=== PATIENT | female | born 1975 | race Two or more races ===

== ENCOUNTER 2025-06-09 15:26 | Emergency (ER) | payer OTHER, SELFPAY ==
[2025-06-09 15:33] VITALS: BP 149/80
[2025-06-09 17:34] LABS: Hematocrit 36.9 % (37.0-47.0); Hemoglobin 12.5 g/dL (12.0-16.0); Mean Corp Hgb Conc. 33.9 g/dL (33.0-37.0); Mean Corpuscular Volume 90.2 fL (81.0-99.0); Nucleated Red Blood Cells % 0 %; Platelet Count 187 10^3/uL (130-400); Red Cell Dist. Width 13.5 % (11.5-14.5)
[2025-06-09 17:58] LABS: ALT (SGPT) 31 U/L (0-35); AST (SGOT) 33 U/L (14-36); Albumin 4.1 g/dl (3.5-5.0); Alkaline Phosphatase 36 U/L (38-126); Blood Urea Nitrogen 13 mg/dl (7-17); Calcium 9.4 mg/dl (8.4-10.2); Carbon Dioxide 25 mmol/L (22-30); Chloride 101 mmol/L (98-107); Glucose 78 mg/dl (70-99); Potassium 4.2 mmol/L (3.5-5.1); Sodium 133 mmol/L (135-145); Total Protein 7.0 g/dl (6.3-8.2); eGFR > 60.00
--- NOTE | 2025-06-09 18:12 | ED.GENMED ---
History of Present Illness
General
Chief Complaint: Change in Mental Status
Source: patient
Exam Limitations: none
Time Seen by Provider: 06/09/25 16:52
Nursing documentation reviewed up to this point in time: agreed with
History of Present Illness
History of Present Illness:
49-year-old female with no significant past medical history presents with concerns of pressure in the head, described as a sensation that is not a headache and occurs intermittently. She has recently experienced two episodes of disorientation
lasting about two minutes each; the first occurred late 3 days ago and the second around noon today while preparing food in the kitchen. During these episodes, she felt confused and had to hold onto a counter to steady herself. Additionally, she
reports blurred vision upon waking in the morning, resolving within a couple of hours once up and around. There is no history of similar episodes. She does not have any chronic medical conditions and denies taking regular medications other than a
multivitamin. There are no known medication allergies and no significant family medical history reported.
Past History
Past History
ED Past Medical History: None
ED Past Surgical History:
Social History
Tobacco: Non-smoker
Alcohol: None
Personal:
Living: with family
Employment: Employed
Review of Systems
Review of Systems
Allergies reviewed?: Yes
All Other Systems: ROS reviewed and negative except as documented in HPI and ROS
Constitutional: Denies fever or fatigue
EENT: Reports other (Vision in both eyes is blurred in the morning, clears up as she is up and around for a couple of hours)
Respiratory: Denies trouble breathing
Cardiac: Denies chest pain
ABD/GI: Denies abdominal pain or nausea
Musculoskeletal: Reports no symptoms
Skin: Reports no symptoms
Neurological: Reports headache (Intermittent head 'pressure.'); Denies dizzy, weakness or numbness
Phy Exam
Physical Exam
Physical Exam:
GENERAL: No acute distress. A&Ox3.
CONSTITUTIONAL: Afebrile.
EYES: clear, conjunctivae normal, PERRL
ENMT: moist mucus membranes, Pharynx nl
RESPIRATORY: Regular respirations, nonlabored, lungs clear.
CARDIOVASCULAR: Regular rate and rhythm, no murmurs, no rubs.
GI: Soft, nontender, normal BS
MUSCULOSKELETAL: Moves with ease. Well perfused.
SKIN: Warm, dry, pink
PSYCH: Normal mood and affect. Well kept, interactive and appropriate
NEUROLOGIC: Awake, alert and oriented. Speech clear. Cranial nerves II through XII intact. [id number] intact. No focal neurological deficits. Ambulates well with steady gait.
Course
Orders/Labs/Results
Orders:
Orders
06/09/25 17:04
CT Head W/o Iv Contrast Urgent
Comment:
Reason For Exam: episodic confusion, pressure in head, blurred visi
06/09/25 17:27
Comprehensive Metabolic Panel Urgent
TSH Reflex To Free T4 Urgent
06/09/25 17:28
Complete Blood Count/With Diff Urgent
Abnormal Lab Results
06/09/25 06/09/25
17:27 17:28
RBC 4.09 L 10^6/uL
(4.20-5.40)
Hct 36.9 L %
(37.0-47.0)
Sodium 133 L mmol/L
(135-145)
Alkaline Phosphatase 36 L U/L
(38-126)
06/09/25 17:28
06/09/25 17:27
Vital Signs
Initial and Last Documented VS:
Initial Vital Signs
Temp Pulse Resp BP Pulse Ox
98.5 F 72 20 149/80 99
06/09/25 15:33 06/09/25 15:33 06/09/25 15:33 06/09/25 15:33 06/09/25 15:33
Last Documented Vital Signs
Temp Pulse Resp BP Pulse Ox
98.5 F 72 20 118/70 99
06/09/25 15:33 06/09/25 15:33 06/09/25 15:33 06/09/25 19:00 06/09/25 18:18
MDM/Problems Addressed
Differential Diagnosis Includes:
TIA, migraine aura without headache, vestibular migraine, labyrinthitis, ocular migraine, anxiety or stress-induced events, BPPV, hypoglycemia, dehydration
Hormonal (perimenopausal)
MDM/Problems Addressed:
49-year-old female with no significant past medical history presents with concerns of 3 days of intermittent pressure in the head, described as a sensation that is not a headache and occurs intermittently. She has recently experienced two episodes
of disorientation lasting about two minutes each; the first occurred late 3 days ago and the second around noon today while preparing food in the kitchen. During these episodes, she felt confused and had to hold onto a counter to steady herself.
Additionally, she reports blurred vision upon waking in the morning, resolving within a couple of hours once up and around. There is no history of similar episodes. She does not have any chronic medical conditions and denies taking regular
medications other than a multivitamin. There are no known medication allergies and no significant family medical history reported.
Patient admits she has been under a lot of stress this week with preparation for the hol.
No acute neurologic deficits.
CBC normal
CMP normal
TSH WNL
6:45 PM:
Head CT radiology report read: No acute intracranial abnormality. Copy of CT given to patient
Results discussed with pt and
She cannot take Ibuprofen due to Crohn's.
She will f/u with PCP in 5-7 days (after the hol if symptoms persist) return instructions reviewed
She is comfortable going home
*Pulse Oximetry
SaO2: 99
Oxygen Mode of Delivery: Room air
Patient hypoxic: no
*Critical Care Note
Total Time (30-74mins, 75-104mins- exclusive of procedures): Not Applicable
ED Attending Note
-
Portions of this chart may have been created with voice recognition software.� Occasional wrong word or��sound alike� substitutions may have occurred due to the inherent limitations of voice recognition software.
Discharge Plan
Departure
Patient Disposition: Home (Routine Discharge)
Date of Disposition: 06/09/25
Time of Disposition: 18:57
Patient with high blood pressure during this ER visit?: No
Condition: Good
Discharge Problem:
Headache
Instructions: Headache in adults - ED (DC)
Referrals:
Edwin Chase DO [Family Provider, Family Practice] - As needed
Activity Restrictions/Additional Instructions:
As we discussed, nothing worrisome in your workup here today.
Return here immediately for worsening head pressure, vomiting more than once 1 hour, confusion, fever or feeling sicker in any way.
See your primary care provider in 5 to 7 days if you are not better by then
Interventions
Interventions:
*General Assessment Last Done: 06/09/25 15:33
*Neglect/Abuse Screening Last Done: 06/09/25 15:33
*ED COVID-19 Vaccine History Last Done: 06/09/25 19:05
*ED Influenza Vaccine History Last Done: 06/09/25 19:05
[facility] Risk Assessment Tool Last Done: 06/09/25 19:04
*Risk Screen - Suicide (C-SSRS) Last Done: 06/09/25 19:05
*Nursing Disposition Last Done: 06/09/25 19:05
ED- Neurological Assessment Last Done: 06/09/25 17:56
ED Swallowing Screen Last Done: 06/09/25 19:04
Discharge Date and Time
Discharge Date/Time: 06/09/25 19:06
Print Language: ISRAELI
[2025-06-09 19:00] VITALS: BP 118/70
== END 2025-06-09 19:06 | disposition home or self-care (01) ==
LOC: EMR 15:26
PROVIDERS: Registered Nurse; EMERGENCY PHYSICIAN Student in an Organized Health Care Education/Training Program; FAMILY PHYSICIAN Family Medicine
DX: R51.9 Headache, unspecified (principal); K50.90 Crohn's disease, unspecified, without complications
CPT/HCPCS: 99284; 70450; 80053; 84443; 85025